=== PATIENT | female | born 1965 | race Caucasian/White ===

== ENCOUNTER → 2024-03-20 18:02 | Outpatient (REF) | payer OTHER, SELFPAY | LOC: RAD 18:02 | PROVIDERS: ATTENDING PHYSICIAN Family Medicine | DX: M25.552 Pain in left hip (principal); M54.50 Low back pain, unspecified | CPT/HCPCS: 72110; 73502 ==

== ENCOUNTER → 2024-05-03 08:01 | Outpatient (REF) | payer OTHER, SELFPAY | LOC: WDC 08:01 | PROVIDERS: ATTENDING PHYSICIAN Obstetrics & Gynecology; FAMILY PHYSICIAN Family Medicine | DX: Z12.31 Encounter for screening mammogram for malignant neoplasm of breast (principal) | CPT/HCPCS: 77063; 77067 ==

== ENCOUNTER 2024-08-14 12:48 | Inpatient (IN) | payer OTHER, SELFPAY ==
[2024-08-14] VITALS (7 sets, daily range): BP systolic 128–161; BP diastolic 76–105; BMI 28.2
--- NOTE | 2024-08-14 09:57 | ED.GENMED ---
History of Present Illness
General
Chief Complaint: Weakness
Source: patient
Exam Limitations: none
Time Seen by Provider: 08/14/24 09:47
History of Present Illness
History of Present Illness:
See MDM
Past History
Past History
ED Past Medical History: HTN, Hypothyroidism and Other (Irritable bowel syndrome)
ED Past Surgical History: and Gynecological (D&C)
Social History
Tobacco: Non-smoker
Alcohol: None
Personal:
Living: with family
Employment: Employed
Family History
Family History: Negative CAD
Phy Exam
Physical Exam
Physical Exam:
See MDM
Course
Orders/Labs/Results
Orders:
Orders
08/14/24 09:55
Electrocardiogram (*1) Urgent
Reason for Study: TIA/Stroke
CT Head W/o Iv Contrast Urgent
Comment:
Reason For Exam: R side weakness
EKG- Treatment ONCE
0.9% Sodium Chloride 1000 ml [Nss] 1,000 ml IV BOLUS
08/14/24 10:04
Complete Blood Count/With Diff Urgent
Comprehensive Metabolic Panel Urgent
Troponin I Urgent
08/14/24 11:35
Aspirin Chewable [Low Strength Aspirin] 324 mg PO NOW STA
Abnormal Lab Results
08/14/24
10:04
WBC 4.3 L 10^3/uL
(4.8-10.8)
Hct 36.5 L %
(37.0-47.0)
MPV 11.1 H fL
(7.4-10.4)
Absolute Lymphs (auto) 1.0 L 10^3/uL
(1.2-3.4)
Chloride 110 H mmol/L
(98-107)
BUN 20 H mg/dl
(7-17)
08/14/24 10:04
08/14/24 10:04
Vital Signs
Initial and Last Documented VS:
Initial Vital Signs
Temp Pulse Resp BP Pulse Ox
98.8 F 80 16 159/105 98
08/14/24 09:34 08/14/24 09:34 08/14/24 09:34 08/14/24 09:34 08/14/24 09:34
Last Documented Vital Signs
Temp Pulse Resp BP Pulse Ox
98.8 F 57 10 146/76 99
08/14/24 09:34 08/14/24 11:03 08/14/24 11:03 08/14/24 11:02 08/14/24 11:03
MDM/Problems Addressed
Differential Diagnosis Includes:
HPI and MDM Narrative:
58-year-old female presenting with right-sided weakness. Patient does acknowledge that she was initially concerned for possible stroke. 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 She states she woke up at 3 in
the morning to go to the bathroom and realized that she was leaning to her right side. She feels like her right leg is weaker than her left. She is unsure if this is related to the shoes she was wearing last day. She did have an event at her
house. She works for her primary care doctor who sent her in for evaluation. On exam, she is well-appearing nontoxic. She has no muscle weakness to either extremity. Sensation grossly intact throughout. She has no focal neurodeficits. Heart
regular rate and rhythm. I cannot appreciate any leg weakness and patient does acknowledge and agree with this. Given her age and history, will obtain CT head and basic blood
Physical exam
General: Well appearing and non-toxic
HEENT: protecting airway. Mildly dry mucous membranes
Neck: appears supple
CV: No evidence of cyanosis
Resp: No accessory muscle use
Abd: Non-distended
Extremities: No deformities
Neuro: alert. No focal neurodeficits. Normal finger-nose bilaterally. Arms and legs muscle strength and sensation grossly intact
Psych: Normal affect
Skin: Intact
Problems Addressed including Acute and Chronic Conditions affecting care:
1. Right-sided weakness
Acuity: acute
Prognosis: stable
Details: I cannot appreciate any leg weakness on exam. We discussed the possibility of TIA. Will obtain CT head and basic blood work
Updates
CT head negative. Blood work without clinical significance. Patient still feels weak on the right side and states she feels unsteady when she walks. Case discussed with her PCP. Will give aspirin and admit for MRI
Differential Diagnosis (but not limited to): TIA, stroke, dehydration
Testing considered: CT angiogram but she has no focal neurodeficits
Drug therapy (if applicable): OTC meds, please see d/c instruction regarding Rx drugs
Amount and/or Complexity of Data Reviewed
Clinical info obtained from: Patient
External data reviewed: N/A
Labs I independently reviewed (but not limited to): Troponin normal
Radiology: the CT scan was personally and independently reviewed. In addition, official CT report reviewed.
Pulse Ox: not hypoxic
EKG independently reviewed: Sinus rhythm, normal axis, no STEMI
Maintenance Supervisor 2Nd Shift: Sinus rhythm
Critical Care: N/A
Risk of Complication:
Social Determinants of health: Good social support
Discussed with other providers: Hospitalist
Escalation of Care includes Admit/Obs: Given the strokelike symptoms and persistent symptoms, will admit
Occasional wrong word or 'sound a like' substitutions may have occurred due to the inherent limitations of voice recognition software. Read the chart carefully and recognize, using context, where substitutions have occurred.
*Critical Care Note
Total Time (30-74mins, 75-104mins- exclusive of procedures): Not Applicable
ED Attending Note
-
Portions of this chart may have been created with voice recognition software.� Occasional wrong word or��sound alike� substitutions may have occurred due to the inherent limitations of voice recognition software.
Discharge Plan
Departure
Patient Disposition: Admit
Date of Disposition: 08/14/24
Time of Disposition: 11:40
Admit to: Telemetry
Presentation/result/management discussed w/ accepting MD/DO: Hospitalist
Discharge Problem:
Weakness
Prescriptions:
No Action
No Current Medications
ibuprofen 800 MG tablet
800 mg PO Q6HPRN PRN (Reason: pain with food) Qty: 30 0RF
Referrals:
Syeda Castellanos MD [Family Provider] -
Interventions
Interventions:
*Risk Screen - Suicide Last Done: 08/14/24 09:34
*General Assessment Last Done: 08/14/24 09:34
*Neglect/Abuse Screening Last Done: 08/14/24 09:34
*ED COVID-19 Vaccine History Last Done: 08/14/24 09:34
ED- Cardiac Assessment Last Done: 08/14/24 10:14
ED- Neurological Assessment Last Done: 08/14/24 10:14
ED- Pulmonary Assessment Last Done: 08/14/24 10:14
Discharge Date and Time
Print Language: FAROESE
[2024-08-14] MEDS: NSS 1000 IV (10:04)
[2024-08-14 10:19] LABS: % Basophils 0.7 % (0-2); % Eosinophils 3.3 % (0-6); % Immature Granulocytes 0.2 % (0-0.5); % Lymphocytes 23.9 % (20.5-51.1); % Monocytes 8.7 % (1.7-9.3); % Neutrophils 63.2 % (42.2-75.2); Absolute Eosinophils 0.1 10^3/uL (0-0.7); Absolute Monocytes 0.4 10^3/uL (0.1-0.6); Absolute Neutrophils 2.7 10^3/uL (1.4-6.5); Hematocrit 36.5 % (37.0-47.0); Hemoglobin 12.5 g/dL (12.0-16.0); Mean Corp Hgb Conc. 34.2 g/dL (33.0-37.0); Mean Corpuscular Hgb 29.8 pg (27.0-31.0); Mean Corpuscular Volume 86.9 fL (81.0-99.0); Mean Platelet Volume 11.1 fL (7.4-10.4); Nucleated Red Blood Cells % 0 %; Platelet Count 163 10^3/uL (130-400); Red Cell Dist. Width 12.8 % (11.5-14.5); White Blood Cell Count 4.3 10^3/uL (4.8-10.8)
[2024-08-14 10:36] LABS: ALT (SGPT) 16 U/L (0-35); AST (SGOT) 24 U/L (14-36); Albumin 4.2 g/dl (3.5-5.0); Alkaline Phosphatase 63 U/L (38-126); Blood Urea Nitrogen 20 mg/dl (7-17); Calcium 9.5 mg/dl (8.4-10.2); Carbon Dioxide 22 mmol/L (22-30); Chloride 110 mmol/L (98-107); Estimated Creatinine Clearance 82 ml/min; Glucose 98 mg/dl (70-99); Potassium 4.1 mmol/L (3.5-5.1); Sodium 143 mmol/L (135-145); Total Bilirubin 0.4 mg/dl (0.2-1.3); Total Protein 6.3 g/dl (6.3-8.2); eGFR > 60.00
[2024-08-14 10:39] LABS: Troponin I < 0.012 ng/ml
[2024-08-14] MEDS: LOW STRENGTH ASPIRIN 324 MG PO (11:42)
--- NOTE | 2024-08-14 12:22 | HPS.HSE ---
Family Physician
-
Family Physician: Syeda Castellanos MD
Chief Complaint
-
Difficulty with balance
History of Present Illness
Patient 58 old female past med history of hypertension, hyperlipidemia, Marion thyroiditis and depression who presents with difficulty with balance. Patient reports that she awoke at 3 AM to use the bathroom. While walking to the bathroom she
felt unsteady. She went back to bed but when she awoke this morning symptoms persisted. She describes symptoms of leaning to the right when walking, and difficulty with balance. She denies any focal numbness, tingling or weakness. She denies
headache, blurry vision, or difficulty with speech. She denies prior history of TIA or stroke.
Medical History
Past Medical History
Past Medical History: Reports Other
Additional Past Medical History:
Essential Hypertension
Hyperlipidemia
Marion's Thyroiditis
Irritable Bowel Syndrome
Depression
Past Surgical History: Reports Other
Additional Past Surgical History:
Section
Oophorectomy
Social History
Tobacco: Non-smoker
Alcohol: Occasional
Family History
Family History: Not pertinent
Allergies / Home Medications
Allergies reflects when Allergies were last updated in [facility].
Home Medications with original date entered in [facility]
Allergy/Medication List:
Allergies
Allergy/AdvReac Type Severity Reaction Status Date / Time
No Known Allergies Allergy Verified 08/14/24 09:39
Home Medications
cholecalciferol (vitamin D3) 50 mcg (2,000 unit) tablet (Vitamin D3) 50 mcg PO HS 08/14/24
cyanocobalamin (vitamin B-12) 1,000 mcg tablet 1,000 mcg PO DAILY 08/14/24
levothyroxine 75 mcg tablet 75 mcg PO DAILY 08/14/24
lisinopril 20 mg tablet 20 mg PO DAILY 08/14/24
rosuvastatin 20 mg tablet 20 mg PO HS 08/14/24
sertraline 100 mg tablet 200 mg PO DAILY 08/14/24
Review of Systems
-
A 12 point ROS was completed and negative except as noted: Yes
Constitutional: Denies Fever or Chills
Respiratory: Denies Cough or Trouble Breathing
Cardiac: Denies Chest Pain or Palpitations
Abdomen/GI: Denies Abdominal Pain, Nausea, Vomiting or Diarrhea
Neurological: Reports See HPI
Physical Exam
Vital Signs
Vital Signs
Temp Pulse Resp BP Pulse Ox
98.8 F 57 10 146/76 99
08/14/24 09:34 08/14/24 11:03 08/14/24 11:03 08/14/24 11:02 08/14/24 11:03
Physical Exam
General: Comfortable and Conversant
HEENT: Anicteric and Moist mucous membranes
Respiratory: Clear and Non Labored Respirations
Cardiac: S1/S2 and Regular Rhythm
GI: Soft and Non Tender
Rectal: Deferred by Provider
Musculoskeletal: No Clubbing, No Cyanosis and No Edema
Skin: Warm and Dry
Neuro: Awake, Alert, Oriented and Other (4/5 Strength RLE otherwise 5/5 Strength; Difficulty with heel to billings on the right; Intact finger to nose)
Laboratory Results
-
08/14/24 10:04
08/14/24 10:04
Laboratory Results
Total Bilirubin 0.4 mg/dl (0.2-1.3) 08/14/24 10:04
AST 24 U/L (14-36) 08/14/24 10:04
ALT 16 U/L (0-35) 08/14/24 10:04
Alkaline Phosphatase 63 U/L (38-126) 08/14/24 10:04
Troponin I < 0.012 ng/ml 08/14/24 10:[address]:
No acute intracranial abnormality.
Data Reviewed
-
Lab Data: Labs Reviewed by me
Impression/Plan
-
Ataxia / Right Lower Extremity Weakness, concern for possible Acute Stroke
-Consult Neurology
-Patient given full strength aspirin in the emergency department - Will give Plavix load now
-Continue low dose aspirin and Plavix
-Check Brain MRI with Head/Neck MRA
-Check HgbA1c and FLP
Essential Hypertension
-Allow for permissive hypertension (220/120) for 24 hours after onset of symptoms
-Resume lisinopril tomorrow morning
Hyperlipidemia
-Continue rosuvastatin
Acquired Hypothyroidism secondary to Marion's Thyroiditis
-Continue levothyroxine
Depression
-Continue sertraline
DVT proph: SCDs
Code Status: Full Code
--- NOTE | 2024-08-14 13:10 | W.PN.UPDATE ---
Update Note
Progress Note Update
This is an addendum to the H&P written by Breanna Hernandez on 08/14. Patient seen and examined independently with PA.
58-year-old female past medical history of hypertension, hypothyroidism, anxiety/depression, hypercholesteremia presenting with unusual feeling in her right lower extremity with some gait dysfunction and unsteadiness as well as burning of her right
shoulder/back area since 3 AM this morning. Neurological examination unremarkable apart from slight weakness of the right lower extremity.
No evidence of shingles on examination. Presentation possibly secondary to CVA. Check hemoglobin A1c and lipid panel, permissive hypertension for 24 hours, aspirin and Plavix given, check MRI/MRA head and neck, neurology consulted.
[2024-08-14] MEDS: PLAVIX 300 MG PO (16:40)
[2024-08-14] MEDS: CRESTOR 20 MG PO (21:00)
[2024-08-14] MEDS: VITAMIN D3 (cholecalciferol) 50 MCG PO (21:00)
[2024-08-15] VITALS (8 sets, daily range): BP systolic 113–156; BP diastolic 71–99; PULSE 72; O2SAT 98
[2024-08-15 05:54] LABS: Hematocrit 37.3 % (37.0-47.0); Hemoglobin 12.7 g/dL (12.0-16.0); Mean Corpuscular Hgb 30.9 pg (27.0-31.0); Mean Corpuscular Volume 90.8 fL (81.0-99.0); Mean Platelet Volume 11.2 fL (7.4-10.4); Platelet Count 144 10^3/uL (130-400); Red Blood Cell Count 4.11 10^6/uL (4.20-5.40); Red Cell Dist. Width 12.7 % (11.5-14.5); White Blood Cell Count 4.3 10^3/uL (4.8-10.8)
[2024-08-15] MEDS: SYNTHROID 75 MCG PO (06:00)
[2024-08-15 06:17] LABS: Blood Urea Nitrogen 19 mg/dl (7-17); Calcium 9.1 mg/dl (8.4-10.2); Carbon Dioxide 21 mmol/L (22-30); Chloride 109 mmol/L (98-107); Estimated Creatinine Clearance 94 ml/min; Glucose 89 mg/dl (70-99); HDL Cholesterol 61 mg/dl; LDL Cholesterol, Calculated 107 mg/dl; Magnesium 2.2 mg/dl (1.6-2.3); Potassium 4.1 mmol/L (3.5-5.1); Sodium 143 mmol/L (135-145); Total Cholesterol 195 mg/dl (50-199); Triglyceride 138 mg/dl (10-149); Very Low Density Lipoprotein 27 mg/dl (0-30); eGFR > 60.00
[2024-08-15 06:44] LABS: TSH Reflex To Free T4 1.25 uIU/ml (0.47-4.68)
--- NOTE | 2024-08-15 07:29 | W.PN.HOSP.TC ---
Today's Communication/Plan
-
For C-spine MRI
Assessment / Plan
Assessment / Plan
HPI: 58 old female past med history of hypertension, hyperlipidemia, Marion thyroiditis and depression who presents with difficulty with balance. Patient reports that she awoke at 3 AM to use the bathroom. While walking to the bathroom she felt
unsteady. She went back to bed but when she awoke this morning symptoms persisted. She describes symptoms of leaning to the right when walking, and difficulty with balance. She denies any focal numbness, tingling or weakness. She denies
headache, blurry vision, or difficulty with speech. She denies prior history of TIA or stroke.
#Right lower extremity weakness
#Hyperreflexia
Unclear etiology, brain MRI negative for stroke
Continues to be symptomatic, therefore not TIA
Neurology recommends C-spine MRI inpatient, and outpatient EMG
PT rec outpatient PT
Stop aspirin/Plavix
#Right shoulder paresthesia
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
C-spine MRI as above
#Benign essential hypertension
Continue lisinopril
#Hypothyroidism
Continue levothyroxine
#Hyperlipidemia
Continue statin
#Anxiety/depression
Continue SSRI
DVT prophylaxis�subcu Lovenox
Full code
Total time spent to see the patient on the floor, examine the patient, review data and lab results, discuss treatment plan with patient, nursing staff around 51 minutes.
Physical Exam
General: No acute distress
HEENT: Normocephalic, Atraumatic, EOMI, MMM
Respiratory: Clear to Auscultation bilaterally
Cardiac: Normal S1/S2, Regular Rate and Rhythm
GI: Soft, Nontender, Nondistended, Normal Bowel Sounds
Extremities: No Clubbing, Cyanosis, or Edema
Neuro:
Bilateral upper extremity 5 out of 5
Right lower extremity 4+ out of 5
Left lower extremity 5 out of 5
Anticipated Discharge: Within 24 hours
Subjective/Interval History
-
Date of Service: August 15, 2024
Patient continues to have mild right lower extremity weakness. She also complains of paresthesias of her right scapula. No fever, no vomiting. No dysphagia.
Objective Data
-
Labs:
Laboratory Results
08/15/24 08/15/24
05:15 05:16
WBC 4.3 L
Hgb 12.7
Hct 37.3
Plt Count 144
Sodium 143
Potassium 4.1
Chloride 109 H
Carbon Dioxide 21 L
BUN 19 H
Creatinine 0.7
Glucose 89
Calcium 9.1
Vital Signs:
Vital Signs
Temp Pulse Resp BP Pulse Ox
98.1 F 63 20 123/76 98
08/15/24 03:35 08/15/24 03:35 08/15/24 03:35 08/15/24 03:35 08/15/24 03:35
I&O
08/14/24 08/15/24 08/16/24
06:59 06:59 06:59
Intake Total 400 / 400
Balance 400 / 400
--- NOTE | 2024-08-15 07:32 | CON.NEURO ---
Consultation
Order
Date of Consultation: 08/15/24
Requesting Provider: Breanna Hernandez PA-C
Reason for Consult: Right leg weakness.
CC: imbalance
HPI: This is a 58-year-old RH woman who presented to [facility] on August 14, 2024 with right-sided weakness
The patient reports feeling unsteady in her right leg without any history of recent falls or injuries. Ms. Iqbal experienced a pinpoint pain in her right shoulder on 08/13/2024 at night, which progressed to a burning sensation over the scapular
area. By 3 AM, she felt unsteady when getting up to get an ice pack, and the issue persisted until 7 AM. The burning sensation started hours before the leg issue. She reports feeling a bit off but walking straighter now. No radicular back pain,
headache, vision changes, or speech issues were reported.
No reports of sensory deficits in the leg, dysarthria, motor or coordination changes in the mid arm, rashes or change in sphincter function.
Farida states that her main issue now is veering to the right side while walking, which has improved but is not yet normal.
ER VS: 159/105, 80, afebrile
PDMP: No prescription meds
Labs: WBCs�4.3, absolute lymphocyte count�1, normal sodium, hemoglobin, platelets, LFTs, TSH,
EKG�sinus bradycardia at 56
TTE-unremarkable
Brain MRI�unremarkable.
Head MRA-BL P1 hypoplasia, no LVO
PMH: cervical DJD, HTN, DLP, hypothyroidism, YVONNE/MDD, IBS, vit D deficiency, vitiligo, h/o ovarian cyst
PSH: , L oophorectomy(2019)
SH: ; works as RN, remote smoker; no reports no excessive ETOh use
FH: father- in his 60s from ALS, sisters-RA abd ankylosing spondylitis
All:NKDA
ROS:Constitutional: Negative. Negative for chills, fever and unexpected weight change.
HENT: Negative for ear pain, hearing loss, tinnitus and trouble swallowing.
Eyes: Negative. Negative for photophobia, pain and visual disturbance.
Respiratory: Negative for cough, choking and shortness of breath.
Cardiovascular: Negative for chest pain, palpitations and leg swelling.
Gastrointestinal: Negative for abdominal pain and vomiting.
Endocrine: Negative. Negative for cold intolerance.
Genitourinary: Negative for dysuria, flank pain and urgency.
Musculoskeletal: Positive for right shoulder pain
Skin: Negative for rash.
Allergic/Immunologic: Negative. Negative for immunocompromised state.
Neurological: Positive for imbalance
Psychiatric/Behavioral: Positive for intermittent anxiety
General: Well developed. In no acute distress.
Cardio: Regular rate and rhythm without murmur. Extremities are without cyanosis or edema.
Neuro:
Mental Status: Alert, oriented to person, place, and date. Normal attention and recall. Good fund of knowledge. Follows complex requests across the midline. Comprehension, naming, and repetition intact. Immediate and delayed recall 3/3.
Cranial Nerves: . Pupils are equally round and reactive to light. EOMs full. Visual alvarez full to confrontation. No ptosis. No nystagmus. V1-V3 intact to light touch and pinprick bilaterally, symmetric. Face symmetric. Normal hearing AU.
The palate elevated well. SCMs and traps 5/5. Tongue midline. No dysarthria. Anxious
Motor: Normal bulk and tone. No pronator or arm drift. Strength 5/5 throughout. No clonus.
Reflexes: 3+ throughout the upper extremities and knees. 2/2 in AJs. Plantar responses flexor bilaterally. Neg Gooden's BL
Sensory: mildly impaired vibration at the toes
Coordination: No dysmetria or tremor.
Gait: narrow stance, normal base, stride, able to tandem. Difficulties standing on the R leg.
BL pes cavus and hummer toes
Assessment and Plan:
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
II. Cervical myelopathy
III. YVONNE
IV. Bilateral PES cavus. Two-thirds of adults with symptomatic cavus foot have an underlying �Otesixk-Arwtl-Wdbbi disease, spinal dysraphism, Intraspinal tumors, syringomyelia, Friedreich ataxia, cerebral palsy or spinal cord tumors.
-Fall precautions
-Avoid heavy lifting
-May consider starting gabapentin 100 mg nightly with titration as tolerated if burning pain becomes disabled
-C/T-spine MRI without yvonne
-PT
-OP NCS/EMG of RUE/LE in 3 weeks
-Outpatient neurology follow-up in 1-2 weeks
I personally reviewed all radiology and labs along with past medical records pertinent to current medical problems. Total time spent in patient care is 65 minutes.
Thank you for allowing us to participate in the care of this patient. We will continue to follow. Please do not hesitate to contact us with any questions or concerns.
Subjective/Objective
Subjective Data
Date of Service: August 15, 2024
Objective Data
Vital Signs
Temp Pulse Resp BP Pulse Ox
36.7 C 65 17 135/79 94
08/15/24 07:30 08/15/24 07:30 08/15/24 07:30 08/15/24 07:30 08/15/24 07:30
Lab Results
08/15/24 05:16
08/15/24 05:15
Sodium 143 mmol/L (135-145) 08/15/24 05:15
Potassium 4.1 mmol/L (3.5-5.1) 08/15/24 05:15
BUN 19 mg/dl (7-17) H 08/15/24 05:15
Glucose 89 mg/dl (70-99) 08/15/24 05:15
Calcium 9.1 mg/dl (8.4-10.2) 08/15/24 05:15
LDL Cholesterol, Calc 107 mg/dl 08/15/24 05:15
Patient Allergies
No Known Allergies Allergy (Verified 08/14/24 09:39)
Medications
-
Active Medications
Generic Name Dose Route Start Last Admin
Trade Name Freq PRN Reason Stop Dose Admin
Acetaminophen 650 mg 08/14/24 14:03
Acetaminophen 650 Mg Rectal Suppository RECTAL 09/11/24 14:02
Q4HPRN PRN
DUQUE, mild pain, or temp >100.4F
Acetaminophen 650 mg 08/14/24 14:03
Acetaminophen 325 Mg Tablet PO 09/11/24 14:02
Q4HPRN PRN
DUQUE, mild pain, or temp >100.4F
Aspirin 81 mg 08/15/24 08:00
Aspirin 81 Mg Chewable Tablet PO 09/12/24 07:59
DAILY CHRISTINA
Cholecalciferol 50 mcg 08/14/24 22:00 08/14/24 21:00
Cholecalciferol (Vitamin D3) 50 Mcg Tablet (2,000 Units) PO 09/11/24 21:59 50 mcg
HS CHRISTINA Administration
Clopidogrel Bisulfate 75 mg 08/15/24 08:00
Clopidogrel 75 Mg Tablet PO 09/12/24 07:59
DAILY CHRISTINA
Levothyroxine Sodium 75 mcg 08/15/24 06:00 08/15/24 06:00
Levothyroxine 75 Mcg Tablet PO 09/12/24 05:59 75 mcg
DAILY@0600 CHRISTINA Administration
Lisinopril 20 mg 08/15/24 08:00
Lisinopril 20 Mg Tablet PO 09/12/24 07:59
DAILY CHRISTINA
Rosuvastatin Calcium 20 mg 08/14/24 22:00 08/14/24 21:00
Rosuvastatin (Crestor) 20 Mg Tablet PO 09/11/24 21:59 20 mg
HS CHRISTINA Administration
Sertraline HCl 200 mg 08/15/24 08:00
Sertraline 100 Mg Tablet PO 09/12/24 07:59
DAILY CHRISTINA
Home Medications
�Medication �Instructions �Recorded
cholecalciferol (vitamin D3) 50 50 mcg PO HS Supplement 08/14/24
mcg (2,000 unit) tablet (Vitamin
D3)
cyanocobalamin (vitamin B-12) 1,000 mcg PO DAILY Supplement 08/14/24
1,000 mcg tablet
levothyroxine 75 mcg tablet 75 mcg PO DAILY Thyroid 08/14/24
lisinopril 20 mg tablet 20 mg PO DAILY Blood Pressure 08/14/24
rosuvastatin 20 mg tablet 20 mg PO HS High Cholesterol 08/14/24
sertraline 100 mg tablet 200 mg PO DAILY Depression 08/14/24
Vital Signs and Labs
-
Vital Signs and Labs:
Vital Signs
Temp Pulse Resp BP Pulse Ox
36.7 C 65 17 135/79 94
08/15/24 07:30 08/15/24 07:36 08/15/24 07:30 08/15/24 07:36 08/15/24 08:16
Lab Results
08/15/24 05:16
08/15/24 05:15
Sodium 143 mmol/L (135-145) 08/15/24 05:15
Potassium 4.1 mmol/L (3.5-5.1) 08/15/24 05:15
BUN 19 mg/dl (7-17) H 08/15/24 05:15
Glucose 89 mg/dl (70-99) 08/15/24 05:15
Calcium 9.1 mg/dl (8.4-10.2) 08/15/24 05:15
LDL Cholesterol, Calc 107 mg/dl 08/15/24 05:15
Medications
-
Medications:
Generic Name Dose Route Start Last Admin
Trade Name Freq PRN Reason Stop Dose Admin
Acetaminophen 650 mg 08/14/24 14:03
Acetaminophen 650 Mg Rectal Suppository RECTAL 09/11/24 14:02
Q4HPRN PRN
DUQUE, mild pain, or temp >100.4F
Acetaminophen 650 mg 08/14/24 14:03
Acetaminophen 325 Mg Tablet PO 09/11/24 14:02
Q4HPRN PRN
DUQUE, mild pain, or temp >100.4F
Aspirin 81 mg 08/15/24 08:00 08/15/24 07:36
Aspirin 81 Mg Chewable Tablet PO 09/12/24 07:59 81 mg
DAILY CHRISTINA Administration
Cholecalciferol 50 mcg 08/14/24 22:00 08/14/24 21:00
Cholecalciferol (Vitamin D3) 50 Mcg Tablet (2,000 Units) PO 09/11/24 21:59 50 mcg
HS CHRISTINA Administration
Clopidogrel Bisulfate 75 mg 08/15/24 08:00 08/15/24 07:36
Clopidogrel 75 Mg Tablet PO 09/12/24 07:59 75 mg
DAILY CHRISTINA Administration
Levothyroxine Sodium 75 mcg 08/15/24 06:00 08/15/24 06:00
Levothyroxine 75 Mcg Tablet PO 09/12/24 05:59 75 mcg
DAILY@0600 CHRISTINA Administration
Lisinopril 20 mg 08/15/24 08:00 08/15/24 07:36
Lisinopril 20 Mg Tablet PO 09/12/24 07:59 20 mg
DAILY CHRISTINA Administration
Rosuvastatin Calcium 20 mg 08/14/24 22:00 08/14/24 21:00
Rosuvastatin (Crestor) 20 Mg Tablet PO 09/11/24 21:59 20 mg
HS CHRISTINA Administration
Sertraline HCl 200 mg 08/15/24 08:00 08/15/24 07:36
Sertraline 100 Mg Tablet PO 09/12/24 07:59 200 mg
DAILY CHRISTINA Administration
Home Medications
-
Home Medications
cholecalciferol (vitamin D3) 50 mcg (2,000 unit) tablet (Vitamin D3) 50 mcg PO HS Supplement 08/14/24
cyanocobalamin (vitamin B-12) 1,000 mcg tablet 1,000 mcg PO DAILY Supplement 08/14/24
levothyroxine 75 mcg tablet 75 mcg PO DAILY Thyroid 08/14/24
lisinopril 20 mg tablet 20 mg PO DAILY Blood Pressure 08/14/24
rosuvastatin 20 mg tablet 20 mg PO HS High Cholesterol 08/14/24
sertraline 100 mg tablet 200 mg PO DAILY Depression 08/14/24
[2024-08-15] MEDS: PLAVIX 75 MG PO (07:36)
[2024-08-15] MEDS: ZOLOFT 200 MG PO (07:36)
[2024-08-15] MEDS: LOW STRENGTH ASPIRIN 81 MG PO (07:36)
[2024-08-15] MEDS: ZESTRIL 20 MG PO (07:36)
--- NOTE | 2024-08-15 10:10 | PTOTSP ---
pt currently demonstrates ability to complete simple ADLs, functional transfers, ambulation with supervision to no assistance. pt does require close supervision due to instability in RLE with ambulation. no pain, discomfort, ROM limitation in UEs
noted. no acute OT needs identified, will defer to PT.
[2024-08-15 10:11] LABS: Glycohemoglobin (HgbA1c) 5.1 % (4.0-5.6)
[2024-08-15 12:00] LABS: C-Reactive Protein < 5.00 mg/L (0.0-10.00)
[2024-08-15 12:23] LABS: Erythrocyte Sed Rate 17 mm/hour (0-20)
[2024-08-15 13:03] LABS: Folate 10.6 ng/ml (2.76-20)
[2024-08-15 15:22] LABS: Syphilis/T. pallidum Ab Reflex Negative (Negative)
--- NOTE | 2024-08-15 15:36 | CM ---
ROSAS met with Vonda at bedside to complete IA. Vonda lives alone in a 2 story home with 2 entry steps. 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 Encouraged her to consider taking her time going back full
time if she is not back to baseline with her amb and adl functions.
Plan: Vonda anticipates discharge home with no needs.
[2024-08-15] MEDS: LOVENOX 40 MG SC (17:40)
[2024-08-15] MEDS: CRESTOR 20 MG PO (21:21)
[2024-08-15] MEDS: VITAMIN D3 (cholecalciferol) 50 MCG PO (21:23)
[2024-08-16 03:05] VITALS: BP 149/79
[2024-08-16] MEDS: SYNTHROID 75 MCG PO (06:06)
[2024-08-16 06:09] VITALS: BMI 27.5
[2024-08-16 07:00] VITALS: BP 137/72
--- NOTE | 2024-08-16 08:38 | W.PN.NEURO.1 ---
Today's Communication / Plan
-
.
Subjective/Objective
Subjective Data
Date of Service: August 16, 2024
Neurology follow-up note
reports no new symptoms since the hospitalization. She continues to have mild ataxia. No reports of headaches, dysarthria, dysphagia, diplopia, vertigo, dysphonia or sensory deficits. Spinal MRIs are pending.
R scapular pain is mild and nondisabling. No rash.
TTE-unremarkable
Brain MRI�unremarkable.
Head MRA-BL P1 hypoplasia, no LVO
PMH: cervical DJD, HTN, DLP, hypothyroidism, YVONNE/MDD, IBS, vit D deficiency, vitiligo, h/o ovarian cyst
PSH: , L oophorectomy(2019)
SH: ; works as RN, remote smoker; no reports no excessive ETOh use
FH: father- in his 60s from ALS, sisters-RA abd ankylosing spondylitis
All:NKDA
ROS:Constitutional: Negative. Negative for chills, fever and unexpected weight change.
HENT: Negative for ear pain, hearing loss, tinnitus and trouble swallowing.
Eyes: Negative. Negative for photophobia, pain and visual disturbance.
Respiratory: Negative for cough, choking and shortness of breath.
Cardiovascular: Negative for chest pain, palpitations and leg swelling.
Gastrointestinal: Negative for abdominal pain and vomiting.
Endocrine: Negative. Negative for cold intolerance.
Genitourinary: Negative for dysuria, flank pain and urgency.
Musculoskeletal: Positive for right shoulder pain
Skin: Negative for rash.
Allergic/Immunologic: Negative. Negative for immunocompromised state.
Neurological: Positive for imbalance
Psychiatric/Behavioral: Positive for intermittent anxiety
General: Well developed. In no acute distress.
Cardio: Regular rate and rhythm without murmur. Extremities are without cyanosis or edema.
Neuro:
Mental Status: Alert, oriented to person, place, and date. Normal attention and recall. Good fund of knowledge. Follows complex requests across the midline. Comprehension, naming, and repetition intact. Immediate and delayed recall 3/3.
Cranial Nerves: . Pupils are equally round and reactive to light. EOMs full. Visual alvarez full to confrontation. No ptosis. No nystagmus. V1-V3 intact to light touch and pinprick bilaterally, symmetric. Face symmetric. Normal hearing AU.
The palate elevated well. SCMs and traps 5/5. Tongue midline. No dysarthria. Anxious
Motor: Normal bulk and tone. No pronator or arm drift. Strength 5/5 throughout. No clonus.
Reflexes: 3+ throughout the upper extremities and knees. 2/2 in AJs. Plantar responses flexor bilaterally. Neg Gooden's BL
Sensory: mildly impaired vibration at the toes
Coordination: No dysmetria or tremor.
Gait: narrow stance, normal base, stride. Difficulties jumping on the R foot as compared to the L.
BL pes cavus and hummer toes
Assessment and Plan:
I. Cervical myelopathy
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
III. Bilateral pes cavus. Two-thirds of adults with symptomatic cavus foot have an underlying �Vdnrrcc-[id number]-Wdtqi disease, spinal dysraphism, Intraspinal tumors, syringomyelia, Friedreich ataxia, cerebral palsy or spinal cord tumors.
-Fall precautions
-C/T-spine MRI without yvonne. Repeat brain MRI(DWI/ADC/FLAIR(brainstem protocol)
-ASA 81 mg QD for possible DWI negative stroke
-PT
-OP NCS/EMG of RUE/LE in 3 weeks
-DVT prophylaxys
I personally reviewed all radiology and labs along with past medical records pertinent to current medical problems. Total time spent in patient care is 25 minutes.
Thank you for allowing us to participate in the care of this patient. We will continue to follow. Please do not hesitate to contact us with any questions or concerns.
Objective Data
Vital Signs
Temp Pulse Resp BP Pulse Ox
36.6 C 63 16 137/72 98
08/16/24 07:00 08/16/24 07:00 08/16/24 07:00 08/16/24 07:00 08/16/24 07:00
Lab Results
08/15/24 05:16
08/15/24 05:15
Sodium 143 mmol/L (135-145) 08/15/24 05:15
Potassium 4.1 mmol/L (3.5-5.1) 08/15/24 05:15
BUN 19 mg/dl (7-17) H 08/15/24 05:15
Glucose 89 mg/dl (70-99) 08/15/24 05:15
Calcium 9.1 mg/dl (8.4-10.2) 08/15/24 05:15
LDL Cholesterol, Calc 107 mg/dl 08/15/24 05:15
Patient Allergies
No Known Allergies Allergy (Verified 08/14/24 09:39)
Vital Signs and Labs
-
Vital Signs and Labs:
Vital Signs
Temp Pulse Resp BP Pulse Ox
36.6 C 63 16 137/72 98
08/16/24 07:00 08/16/24 07:00 08/16/24 07:00 08/16/24 07:00 08/16/24 07:00
Lab Results
08/15/24 05:16
08/15/24 05:15
Sodium 143 mmol/L (135-145) 08/15/24 05:15
Potassium 4.1 mmol/L (3.5-5.1) 08/15/24 05:15
BUN 19 mg/dl (7-17) H 08/15/24 05:15
Glucose 89 mg/dl (70-99) 08/15/24 05:15
Calcium 9.1 mg/dl (8.4-10.2) 08/15/24 05:15
LDL Cholesterol, Calc 107 mg/dl 08/15/24 05:15
Medications
-
Medications:
Generic Name Dose Route Start Last Admin
Trade Name Freq PRN Reason Stop Dose Admin
Acetaminophen 650 mg 08/14/24 14:03
Acetaminophen 650 Mg Rectal Suppository RECTAL 09/11/24 14:02
Q4HPRN PRN
DUQUE, mild pain, or temp >100.4F
Acetaminophen 650 mg 08/14/24 14:03
Acetaminophen 325 Mg Tablet PO 09/11/24 14:02
Q4HPRN PRN
DUQUE, mild pain, or temp >100.4F
Cholecalciferol 50 mcg 08/14/24 22:00 08/15/24 21:23
Cholecalciferol (Vitamin D3) 50 Mcg Tablet (2,000 Units) PO 09/11/24 21:59 50 mcg
HS CHRISTINA Administration
Enoxaparin Sodium 40 mg 08/15/24 18:00 08/15/24 17:40
Enoxaparin Sodium 40 Mg/0.4 Ml Syringe SC 09/12/24 17:59 40 mg
QPM CHRISTINA Administration
Levothyroxine Sodium 75 mcg 08/15/24 06:00 08/16/24 06:06
Levothyroxine 75 Mcg Tablet PO 09/12/24 05:59 75 mcg
DAILY@0600 CHRISTINA Administration
Lisinopril 20 mg 08/15/24 08:00 08/15/24 07:36
Lisinopril 20 Mg Tablet PO 09/12/24 07:59 20 mg
DAILY CHRISTINA Administration
Rosuvastatin Calcium 20 mg 08/14/24 22:00 08/15/24 21:21
Rosuvastatin (Crestor) 20 Mg Tablet PO 09/11/24 21:59 20 mg
HS CHRISTINA Administration
Sertraline HCl 200 mg 08/15/24 08:00 08/15/24 07:36
Sertraline 100 Mg Tablet PO 09/12/24 07:59 200 mg
DAILY CHRISTINA Administration
Home Medications
-
Home Medications
cholecalciferol (vitamin D3) 50 mcg (2,000 unit) tablet (Vitamin D3) 50 mcg PO HS Supplement 08/14/24
cyanocobalamin (vitamin B-12) 1,000 mcg tablet 1,000 mcg PO DAILY Supplement 08/14/24
levothyroxine 75 mcg tablet 75 mcg PO DAILY Thyroid 08/14/24
lisinopril 20 mg tablet 20 mg PO DAILY Blood Pressure 08/14/24
rosuvastatin 20 mg tablet 20 mg PO HS High Cholesterol 08/14/24
sertraline 100 mg tablet 200 mg PO DAILY Depression 08/14/24
[2024-08-16] MEDS: ZOLOFT 200 MG PO (08:52)
[2024-08-16] MEDS: ZESTRIL 20 MG PO (08:52)
--- NOTE | 2024-08-16 08:55 | W.PN.HOSP.TC ---
Today's Communication/Plan
-
Cleared by neurology for discharge today
Assessment / Plan
Assessment / Plan
HPI: 58 old female past med history of hypertension, hyperlipidemia, Marion thyroiditis and depression who presents with difficulty with balance. Patient reports that she awoke at 3 AM to use the bathroom. While walking to the bathroom she felt
unsteady. She went back to bed but when she awoke this morning symptoms persisted. She describes symptoms of leaning to the right when walking, and difficulty with balance. She denies any focal numbness, tingling or weakness. She denies
headache, blurry vision, or difficulty with speech. She denies prior history of TIA or stroke.
#Right lower extremity weakness
#Hyperreflexia
Unclear etiology, brain MRI x 2 negative for stroke
Continues to be symptomatic, therefore not TIA
Neurology recommends outpatient EMG, PT
PT rec outpatient PT
Medically stable for discharge today, prescription provided for outpatient EMG and outpatient PT
Follow-up with neurology [facility] Vilma frank in 3-4 weeks
#Right shoulder paresthesia
#C5 cervical radiculopathy
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
C-spine MRI shows multilevel degenerative changes most pronounced at C5-C6 and C6-C7 where there is mild canal stenosis, severe right-sided neuroforaminal narrowing and mild left-sided neuroforaminal narrowing.
Can consider gabapentin or Lyrica with PCP if symptoms worsen
#Benign essential hypertension
Continue lisinopril
#Hypothyroidism
Continue levothyroxine
#Hyperlipidemia
Continue statin
#Anxiety/depression
Continue SSRI
DVT prophylaxis�subcu Lovenox
Full code
Updated son at bedside 08/16
Physical Exam
General: No acute distress
HEENT: Normocephalic, Atraumatic, EOMI, MMM
Respiratory: Clear to Auscultation bilaterally
Cardiac: Normal S1/S2, Regular Rate and Rhythm
GI: Soft, Nontender, Nondistended, Normal Bowel Sounds
Extremities: No Clubbing, Cyanosis, or Edema
Neuro:
Bilateral upper extremity 5 out of 5
Right lower extremity 4+ out of 5
Left lower extremity 5 out of 5
Anticipated Discharge: Today
Subjective/Interval History
-
Date of Service: August 16, 2024
Right lower extremity weakness improved. Continues to have mild paresthesia of the right shoulder. No fever, no vomiting.
Objective Data
-
Vital Signs:
Vital Signs
Temp Pulse Resp BP Pulse Ox
97.9 F 63 16 137/72 98
08/16/24 07:00 08/16/24 08:52 08/16/24 07:00 08/16/24 08:52 08/16/24 07:00
I&O
08/15/24 08/16/24 08/17/24
06:59 06:59 06:59
Intake Total 400 / 400 1140 / 1140
Balance 400 / 400 1140 / 1140
[2024-08-16 11:00] VITALS: BP 137/90
--- NOTE | 2024-08-16 13:26 | CM ---
Addendum entered by Rola Ball 08/16/24 13:52:
Pharmacy verified: Ayah Najma @ [id number]
Outpatient Observation Status Form explained and signed @ [id number]
Original Note:
Plan: discharge to home with outpatient therapy; son will transport home
[2024-08-16 14:47] VITALS: BP 128/84
[2024-08-17 09:02] LABS: ANA, IgG Reflex to HEp-2 Detected (None Detected)
[2024-08-18 09:18] LABS: ANA Pattern Homogeneous; ANA, HEp-2, IgG Detected (<1:80)
== END 2024-08-16 15:02 | disposition home or self-care (01) | DRG 948 ==
LOC: 3 WEST ACU 12:48
PROVIDERS: Physician Assistant Medical; ADMITTING PHYSICIAN Hospitalist; ATTENDING PHYSICIAN Family Medicine; CONSULT PHYSICIAN Psychiatry & Neurology Neurology; EMERGENCY PHYSICIAN Student in an Organized Health Care Education/Training Program; FAMILY PHYSICIAN Family Medicine
DX: R53.1 Weakness (principal); E06.3 Autoimmune thyroiditis; F32.9 Major depressive disorder, single episode, unspecified; I10 Essential (primary) hypertension; R29.2 Abnormal reflex; M47.22 Other spondylosis with radiculopathy, cervical region; M48.02 Spinal stenosis, cervical region; E55.9 Vitamin D deficiency, unspecified; E78.5 Hyperlipidemia, unspecified; F41.1 Generalized anxiety disorder; K58.8 Other irritable bowel syndrome; M25.511 Pain in right shoulder; R00.1 Bradycardia, unspecified; Z79.890 Hormone replacement therapy; Z79.899 Other long term (current) drug therapy; Z87.891 Personal history of nicotine dependence
CPT/HCPCS: 70450; 70544; 70548; 70551; 72141; 72146; 80048; 80053; 80061; 82746; 83036; 83735; 84443; 84484; 85025; 85027; 85652; 86038; 86140; 86780; 93005; 93306; 96360; 97163; 97165; 99285; A9585

== ENCOUNTER → 2024-08-21 07:12 | Outpatient (REF) | payer OTHER, SELFPAY | LOC: EMG 07:12 | PROVIDERS: ATTENDING PHYSICIAN Family Medicine; FAMILY PHYSICIAN Family Medicine | DX: R26.9 Unspecified abnormalities of gait and mobility (principal); R27.0 Ataxia, unspecified; R29.898 Other symptoms and signs involving the musculoskeletal system | CPT/HCPCS: 95886; 95910 ==

== ENCOUNTER → 2025-02-18 07:12 | Outpatient (REF) | payer OTHER, SELFPAY | LOC: PAVMRI 07:12 | PROVIDERS: ATTENDING PHYSICIAN Family Medicine | DX: M51.361 Other intervertebral disc degeneration, lumbar region with lower extremity pain only (principal); M43.16 Spondylolisthesis, lumbar region; M25.551 Pain in right hip | CPT/HCPCS: 72148 ==

== ENCOUNTER → 2025-03-21 15:13 | Outpatient (REF) | payer OTHER, SELFPAY | LOC: RAD 15:13 | PROVIDERS: ATTENDING PHYSICIAN Family Medicine | DX: M25.551 Pain in right hip (principal) | CPT/HCPCS: 73502 ==

== ENCOUNTER → 2025-05-09 08:23 | Outpatient (REF) | payer OTHER, SELFPAY | LOC: WDC 08:23 | PROVIDERS: ATTENDING PHYSICIAN Obstetrics & Gynecology; FAMILY PHYSICIAN Family Medicine | DX: Z12.31 Encounter for screening mammogram for malignant neoplasm of breast (principal) | CPT/HCPCS: 77063; 77067 ==

== ENCOUNTER → 2025-09-17 08:01 | Outpatient (REF) | payer OTHER, SELFPAY | LOC: HWRAD 08:01 | PROVIDERS: ATTENDING PHYSICIAN Family Medicine | DX: E04.1 Nontoxic single thyroid nodule (principal) | CPT/HCPCS: 76536 ==